=== PATIENT | female | born 2000 | race Caucasian/White ===

== ENCOUNTER 2024-09-06 03:55 | Inpatient (IN) | payer MEDICAID, SELFPAY ==
[2024-09-06] VITALS (129 sets, daily range): BP systolic 0–136; BP diastolic 0–80; PULSE 68–138; RESP 16–98; TEMP 36.6–36.9; O2SAT 88–99; BMI 27.3
[2024-09-06] MEDS: RINGERS LACTATED 1000 ML 1,000 ML 125 ML IV ×2 (06:15→08:19)
[2024-09-06] MEDS: Ampicillin Inj 2,000 MG in SODIUM CHLORIDE 0.9% (POP) 100 ML 200 MG IV (06:16)
[2024-09-06 06:46] LABS: Basophils % (Auto) 0 % (0-2.5); Eosinophils # (Auto) 0.1 Thou/mm3 (0.0-0.5); Eosinophils % (Auto) 1 % (0-10); Hematocrit 36.4 % (36.0-46.0); Hemoglobin 13.2 g/dL (12.0-16.0); Immature Granulocytes % (Auto) 1 % (0-0); Immature Granulocytes Auto 0.15 Thou/mm3 (0.00-0.00); Lymphocytes # (Auto) 1.9 Thou/mm3 (1.0-4.8); Lymphocytes % (Auto) 16 % (10-50); Mean Corpuscular HGB Conc 36.3 g/dl (31.0-37.0); Mean Corpuscular Hemoglobin 32.4 pg (25.0-35.0); Mean Corpuscular Volume 89 fL (80-100); Monocytes # (Auto) 0.5 Thou/mm3 (0.0-0.8); Monocytes % (Auto) 4 % (0-12); Neutrophils % (Auto) 77 % (37-80); Nucleated Red Blood Cell % 0 /100 WBC (0); Platelet Count 220 Thou/mm3 (140-440); Red Blood Count 4.07 Miln/mm3 (4.00-5.20); White Blood Count 11.6 Thou/mm3 (3.6-11.0)
[2024-09-06 06:56] LABS: Amphetamine/Metham Scrn,Ur OB Negative (Negative); Benzoylecgonine Screen, Ur OB Negative (Negative); Opiate Screen,Urine OB Negative (Negative); THC Screen,Urine OB Negative (Negative)
[2024-09-06 07:29] LABS: Syphilis Nonreactive (Nonreactive)
[2024-09-06] MEDS: Ampicillin Inj 1,000 MG in SODIUM CHLORIDE 0.9% (Popper) 50 ML 50 MG IV (10:15)
--- NOTE | 2024-09-06 11:15 | PD.LDHP ---
Documentation for date of: 09/06/24 OB Labor/Induct. HPI History of Present Illness History of present illness: 24 y/o @39w2d, here with contractions . Pt feels contractions every 2-3 mins, denied any leaking or bleeding. Previous VD at 38weeks. History of chlamydia positive earlier in but had a test of cure after the treatment. No other medical issues History of Present Dating criteria: LMP confirmed by 2nd trimester US Adequate Care: Yes Abnormal ultrasound findings: none possible VSD on anatomy scan, follow up was reccomended Labs Labs: Positive: Group Beta Strep and Negative: Hepatitis B, HIV, Chlamydia and Gonorrhea Narrative: Cystic fibrosis , SMA carrier negative NIPT low risk Meds Home Medications and Allergies Allergies Allergy/AdvReac Type Severity Reaction Status Date / Time No Known Allergies Allergy Verified 09/06/24 06:08 OB Exam Physical Exam Vital signs: Temp Pulse Resp BP Pulse Ox 98.5 F 72 16 110/67 96 09/06/24 04:24 09/06/24 10:52 09/06/24 04:12 09/06/24 10:52 09/06/24 11:12 Constitutional Constitutional: no acute distress Routine HEENT Exam Head: Present normocephalic and atraumatic Eye: Present EOMI and PERRL ENT: Present mucous membranes moist Routine Neck Exam Neck: Present supple and trachea midline Routine Cardiovascular Exam Cardiovascular: Present RRR Routine Abdominal Exam Abdominal: Present soft and normoactive bowel sounds Detailed Labor and Delivery Exam Dilation (cm): 4-5 Effacement (%): 80 Cervix position: anterior Presentation: Vertex Comments: category 1 Routine Extremities Exam Extremities: Present full ROM Routine Skin Exam Skin: Present intact, dry and warm Routine Neurological Exam Neurological: Present alert, oriented X3 and CN II-XII intact Routine Psychiatric Exam Psychiatric: Present normal affect and normal thought process OB Results Labs 09/06/24 06:06 Labs: Short CBC 09/06/24 Range/Units 06:06 WBC 11.6 H (3.6-11.0) Thou/mm3 Hgb 13.2 (12.0-16.0) g/dL Hct 36.4 (36.0-46.0) % Plt Count 220 (140-440) Thou/mm3 Impressions Impression: 24 y/o @39w2d, per LMP 2nd trimester, admitted for labor augmentation GBS +ve Cephalic presentation Chlamydia positive in early PNC, YENNY negative anatomy wnl OB Assessment & Plan Additional Plan Additional Plan Comment: pitocin to be started in case of unsatidfactory progress of labor GBS prophylaxis Epidural when the patinet desires
[2024-09-06] MEDS: BENZO/LANO/ALOE (Dermoplast) 60 GM CAN 1 SPRAY TOP (14:34)
[2024-09-06] MEDS: ceFAZolin/D5W 2 GM IV 2 GM/100 ML BAG IV (14:35)
[2024-09-06 18:13] LABS: Basophils # (Auto) 0.1 Thou/mm3 (0.0-0.2); Basophils % (Auto) 0 % (0-2.5); Eosinophils % (Auto) 0 % (0-10); Hematocrit 32.7 % (36.0-46.0); Hemoglobin 11.7 g/dL (12.0-16.0); Immature Granulocytes % (Auto) 1 % (0-0); Immature Granulocytes Auto 0.09 Thou/mm3 (0.00-0.00); Lymphocytes # (Auto) 2.1 Thou/mm3 (1.0-4.8); Lymphocytes % (Auto) 12 % (10-50); Mean Corpuscular HGB Conc 35.8 g/dl (31.0-37.0); Mean Corpuscular Hemoglobin 32.9 pg (25.0-35.0); Mean Corpuscular Volume 92 fL (80-100); Monocytes # (Auto) 0.8 Thou/mm3 (0.0-0.8); Monocytes % (Auto) 4 % (0-12); Neutrophils % (Auto) 83 % (37-80); Nucleated Red Blood Cell % 0 /100 WBC (0); Platelet Count 216 Thou/mm3 (140-440); RDW Standard Deviation 41.7 fL (36.4-46.3); Red Blood Count 3.56 Miln/mm3 (4.00-5.20); White Blood Count 18.1 Thou/mm3 (3.6-11.0)
--- NOTE | 2024-09-06 18:25 | PD.LDDELS ---
Data ([facility]) Data : 2 Term: 1 : 0 : 0
--- NOTE | 2024-09-06 21:43 | PD.LDDELS ---
Data ([facility]) Data : 2 Para: 1 Term: 1 : 0 : 0 Delivery Data ([facility]) Labor Data ROM Date: 09/06/24 ROM Time: 07:40 Rupture Type: SROM Amniotic Fluid: Meconium Stained Delivery Data Labor Onset Stage 1 Date: 09/06/24 Labor Onset Stage 1 Time: 01:00 Labor Onset Stage 2 Date: 09/06/24 Labor Onset Stage 2 Time: 11:27 Delivery Date: 09/06/24 Delivery Time: 11:27 Gestational age (weeks): 39 Gestational age (days): 2 Placenta Delivery Date: 09/06/24 Placenta Delivery Time: 11:38 Delivered by: Fern Moncada Delivery nurse: Alice Black Delivery Method Delivery: Vaginal Delivery Type: Spontaneous Anesthesia Type Primary Anesthesia: None Perineal repair Sutures used for repair: 3.0 Vicryl EBL Estimated blood loss (ml): 100 Data ([facility]) [place] Data Gender: Male Infant Weight Grams: 2780 1 Minute Total: 8 5 Minute Total: 9 Additional Comments Additional comments: Shoulder sand body delivered atraumatic AMTSL done placenat delivered intact Fundus firm , no bleeding
[2024-09-07 00:05] VITALS: BP 104/66; PULSE 83; RESP 16; TEMP 36.6; O2SAT 96
[2024-09-07 04:01] VITALS: BP 105/64; PULSE 79; RESP 17; TEMP 36.7; O2SAT 97
[2024-09-07] MEDS: IBUPROFEN TAB 400 MG TABLET 800 MG PO (05:12)
[2024-09-07 07:33] VITALS: BP 97/56; PULSE 68; RESP 18; TEMP 36.6; O2SAT 97
--- NOTE | 2024-09-07 10:25 | PC.SS ---
MARKETING GRAPHICS SPECIALIST conducted bedside contact with the patient to address nursing referral indicating patient was late to care 15 weeks.? MARKETING GRAPHICS SPECIALIST introduced self and role.? Present at patient?s bedsides was Jose CARO.? Patient gave permission for FOB to be present during discussion.? Patient confirmed late to care at 15 weeks.? Patient stated that late to care due to scheduling availability.? Upon appointment being scheduled patient received OB services from Cordelia Sen.? Patient describes consistency with OB appointments.? Infant will receive head strength and conditioning coach services from Dr. Osei, [facility]; [place].? , [place]; is the patient?s second child.? Other child is 2 years old.? delivered naturally.? Patient plans on .? Patient is not receiving WIC, SNAP or TANF.? Patient denies history of alcohol/drug abuse.? Patient denies CWS intervention.? Patient denies episodes of domestic violence.? Patient denies possessing a history of mental health, reports no current possession of depression or anxiety.? Patient has access to appropriate supplies and equipment; to include a car seat.? FOB will provide transportation upon discharge.? Patient describes possessing support system consisting of mother in law and extended family.? MARKETING GRAPHICS SPECIALIST provided the patient with community resources to include [employer] and Warm Line.? No further intervention required at this time, outreach and education social worker will be available to address any further concerns.? MARKETING GRAPHICS SPECIALIST updated bedside nurse.?
--- NOTE | 2024-09-07 12:06 | ESDS_ITS ---
DS: Providers Provider Date of admission: 09/06/24 05:55 Primary care physician: Physician No Primary/Family Admitting Provider: Fern Moncada MD Attending Provider on Admission: Fern Moncada MD Consults: 09/06/24 11:53 Referral Routine Comment: Attending Provider on DC: Verito Westbrook MD Discharging Provider: Verito Westbrook MD DS: Diagnosis Discharge Diagnosis (1) care and examination immediately after delivery: Status: Acute (2) Active labor at term: Status: Acute Problem List Completed Was Problem List Reviewed/Reconciled?: Yes Summary/Hosp Course Brief History: 24 y/o @39w2d, here with contractions . Pt feels contractions every 2-3 mins, denied any leaking or bleeding. Previous VD at 38weeks. History of chlamydia positive earlier in but had a test of cure after the treatment. No other medical issues. Daniella is doing well on PPD1 s/p uncompliated after presenting in active labor at term. She has had an uncomplicated course, meeting all milestones and feels ready for discharge home. She is ambulating without lightheadedness, tolerating regular diet no n/v, spontaneously voiding without issue. She has no chest pain or shortness of breath. No fevers or chills. Minimal, appropriate discomfort. Vitals normal, benign exam. Hemodynamically stable with no evidence of infection. PP Hgb 11.7 from 13.2. Status at Discharge Functional status at discharge: independent ambulation Overall status at discharge: patient is back to baseline Time Spent with Patient Time attestation: Total time spent providing and/or coordinating discharge services: Exam Vital Signs Temp Pulse Resp BP Pulse Ox O2 Del Method 97.9 F 68 18 97/56 L 97 Room Air 09/07/24 07:33 09/07/24 07:33 09/07/24 07:33 09/07/24 07:33 09/07/24 07:33 09/07/24 07:33 Narrative Exam General: well developed, well nourished, no acute distress, conversant Cardiac: normal heart rate Lungs: breathing without distress Abdomen: soft, post-gravid, non-tender, no rebound or guarding, Fundus firm at u-3cm. Extremities: no pain with palpation of calves, trace edema of BLE Discharge Plan Plan Patient Disposition: HOME (Self Care) Patient condition on transfer: Stable Prescriptions/Referrals Prescriptions/Med Rec: New ibuprofen 800 mg tablet 800 mg PO Q8H PRN (Reason: See Comments) 10 Days Qty: 20 0RF docusate sodium [Colace] 100 mg capsule 100 mg PO BID Qty: 20 0RF Referrals: No Primary/Family,Physician [Primary Care Provider] - Patient/Caregiver Discharge Instructions Discharge Activity: activity as tolerated and other Other Discharge Activity Instructions:: vaginal rest and no heavy lifting more than 10 pounds for 6 weeks Other Discharge Diet Instructions: regular diet Education Materials: After a Vaginal Print Language: Occitan Activity Restrictions/Additional Instructions: follow up in 4 weeks with your obgyn, call clinic for appointment Stand Alone Forms: [facility] Award Info., Patient Portal Info Letter Discharge Order Discharge Orders: Discharge (Routine); Ordered 09/07/24 Ordered By: Verito Westbrook Planned Discharge Date 09/07/24
[2024-09-07 12:27] VITALS: BP 108/63; PULSE 78; RESP 18; TEMP 36.7; O2SAT 97
== END 2024-09-07 13:24 | disposition home or self-care (01) | DRG 560 ==
LOC: S4SX 13:34 → S4NX 14:05
PROVIDERS: Admitting Provider Student in an Organized Health Care Education/Training Program; Visit Provider Student in an Organized Health Care Education/Training Program
DX: O77.0 Labor and delivery complicated by meconium in amniotic fluid (principal); Z37.0 Single live birth; Z3A.39 39 weeks gestation of pregnancy
CPT/HCPCS: 36415; 80307; 85025; 86780; 86850; 86900; 86901; J0290; J0689; J2795; J3010; J7050; J7120; A9270